=== PATIENT | female | born 1970 | race Caucasian/White ===

== ENCOUNTER 2017-11-22 09:55 | Outpatient (CLI) | payer OTHER ==
[2017-11-22 11:42] LABS: BASOPHILS % (AUTO) 0.9 % (0.0-2.0); EOSINOPHILS % (AUTO) 0.7 % (0.0-4.0); HEMATOCRIT 37.2 % (36-48); HEMOGLOBIN 12.4 g/dL (12.0-16.0); LYMPHOCYTES # (AUTO) 0.7 K/uL (1.0-5.5); LYMPHOCYTES % (AUTO) 16.1 % (20.5-51.5); MEAN CORPUSCULAR HEMOGLOBIN 29 pg (27-31); MEAN CORPUSCULAR HGB CONC 34 % (32-36); MEAN CORPUSCULAR VOLUME 87 fL (79.0-98.0); MONOCYTES # (AUTO) 0.3 K/uL (0.0-1.0); MONOCYTES % (AUTO) 7.5 % (1.7-9.3); NEUTROPHILS # (AUTO) 3.5 K/uL (1.8-7.7); NEUTROPHILS % (AUTO) 74.8 % (40.0-70.0); PLATELET COUNT (AUTO) 292 K/uL (130-430); RED BLOOD CELL COUNT(AUTO) 4.27 MIL/uL (4.2-6.2); RED CELL DISTRIBUTION WIDTH 12.9 % (9.0-15.0); WHITE BLOOD COUNT (AUTO) 4.5 K/uL (4.8-10.8)
[2017-11-22 11:51] LABS: BILIRUBIN,URINE NEGATIVE (NEGATIVE); BLOOD, URINE NEGATIVE (NEGATIVE); COLOR,URINE YELLOW (YELLOW); GLUCOSE,URINE NEGATIVE (NEGATIVE); KETONES,URINE NEGATIVE (NEGATIVE); LEUKOCYTE ESTERASE ,URINE TRACE (NEGATIVE); NITRITE, URINE POSITIVE (NEGATIVE); PH,URINE 6.5 (5.0-8.0); PROTEIN URINE NEGATIVE (NEGATIVE); UROBILINOGEN,URINE 0.2 (0.2-1.0)
[2017-11-22 11:52] LABS: CLARITY/URINE SLIGHTLY HAZY (CLEAR)
[2017-11-22 12:06] LABS: BACTERIA,URINE MANY /HPF (None Seen); RBC,URINE 0-3 /HPF (0-3)
[2017-11-22 12:28] LABS: ALANINE AMINOTRANSFERASE 17 U/L (12-78); ALBUMIN 3.5 g/dL (3.4-4.8); ANION GAP 7 (5-15); ASPARTATE AMINOTRANSFERASE 22 U/L (10-37); CALCIUM 8.9 mg/dL (8.4-11.0); CHLORIDE 101 mmol/L (98-107); CHOLESTEROL 143 mg/dL (<200); CREATININE 0.56 mg/dL (0.55-1.30); FREE T4 (FREE THYROXINE) 0.6 ng/dL (0.6-1.6); GFR AFRICAN AMERICAN 149 mL/min (>90); GLUCOSE 78 mg/dL (70-99); HDL CHOLESTEROL 39 mg/dL (>55); LDL CHOLESTEROL 100 mg/dL (<100); POTASSIUM 3.5 mmol/L (3.5-5.1); SODIUM SERUM 132 mmol/L (136-145); TOTAL BILIRUBIN 0.7 mg/dL (0.0-1.0); TRIGLYCERIDES 82 mg/dL (30-150); UREA NITROGEN, BLOOD 8 mg/dL (8-21)
[2017-11-22 12:35] LABS: ERYTHROCYTE SEDIMENTATION RATE 47 MM/HR (0-20)
[2017-11-22 12:36] LABS: C-REACTIVE PROTEIN QUANT < 0.2 mg/dL (0-0.5)
[2017-11-23 08:30] LABS: HEMOGLOBIN A1C 5.5 % (4.8-5.6)
[2017-11-23 10:10] LABS: THYROID PEROXIDASE (TPO) AB 15 IU/mL (0-34); TRIIODOTHYRONINE (T3) 136 ng/dL (71-180)
[2017-11-25 06:16] LABS: FOLATE (FOLIC ACID) >20.0 ng/mL (>3.0)
[2017-11-25 15:12] LABS: COMPLEMENT C3, SERUM 103 mg/dL (82-167); COMPLEMENT C4, SERUM 17 mg/dL (14-44)
[2017-11-25 16:07] LABS: ANTI NUCLEAR AB WITH REFLEX Positive (Negative)
[2017-11-28 14:24] LABS: COMPLEMENT C4, SERUM 17 mg/dL (14-44)
[2017-11-28 14:25] LABS: ANTI-DNA(DS) AB, QN 48 IU/mL (0-9); ANTI-NUCLEAR AB DIRECT Positive; ANTI-PARIETAL CELL AB 4.5 Units (0.0-20.0); ANTI-SMOOTH MUSCLE AB 20 Units (0-19); SMITH ABS 7.2
[2017-11-28 14:26] LABS: THYROID PEROXIDASE (TPO) AB 15 IU/mL (0-34)
== END 2017-11-22 20:55 | disposition home or self-care (01) ==
LOC: SLB 09:55
DX: Z00.01 Encounter for general adult medical examination with abnormal findings (principal); E03.9 Hypothyroidism, unspecified; M32.9 Systemic lupus erythematosus, unspecified
CPT/HCPCS: 36415; 80053; 80061; 81000-TC; 82306; 82607; 82746; 83036; 83735-TC; 84439; 84443-TC; 84480; 85025; 85651-TC; 86038; 86140; 86160; 86376

== ENCOUNTER 2020-01-01 10:46 | Outpatient (CLI) | payer OTHER ==
[2020-01-01 12:18] LABS: BILIRUBIN,URINE NEGATIVE (NEGATIVE); BLOOD, URINE NEGATIVE (NEGATIVE); CLARITY/URINE CLEAR (CLEAR); COLOR,URINE YELLOW (YELLOW); GLUCOSE,URINE NEGATIVE (NEGATIVE); KETONES,URINE NEGATIVE (NEGATIVE); LEUKOCYTE ESTERASE ,URINE NEGATIVE (NEGATIVE); NITRITE, URINE NEGATIVE (NEGATIVE); PROTEIN URINE NEGATIVE (NEGATIVE); UROBILINOGEN,URINE 0.2 (0.2-1.0)
[2020-01-01 12:29] LABS: BASOPHILS # (AUTO) 0.1 K/uL (0.0-0.2); BASOPHILS % (AUTO) 1.6 % (0.0-2.0); EOSINOPHILS % (AUTO) 0.3 % (0.0-4.0); HEMATOCRIT 33.8 % (36-48); HEMOGLOBIN 10.9 g/dL (12.0-16.0); LYMPHOCYTES # (AUTO) 0.3 K/uL (1.0-5.5); LYMPHOCYTES % (AUTO) 5.4 % (20.5-51.5); MEAN CORPUSCULAR HEMOGLOBIN 24 pg (27-31); MEAN CORPUSCULAR HGB CONC 32 % (32-36); MEAN CORPUSCULAR VOLUME 75 fL (79.0-98.0); MONOCYTES # (AUTO) 0.5 K/uL (0.0-1.0); MONOCYTES % (AUTO) 7.7 % (1.7-9.3); NEUTROPHILS # (AUTO) 5.4 K/uL (1.8-7.7); PLATELET COUNT (AUTO) 332 K/uL (130-430); RED BLOOD CELL COUNT(AUTO) 4.49 MIL/uL (4.2-6.2); RED CELL DISTRIBUTION WIDTH 20.4 % (9.0-15.0); WHITE BLOOD COUNT (AUTO) 6.3 K/uL (4.8-10.8)
[2020-01-01 13:06] LABS: TOTAL IRON BIND. CAPACITY 388 ug/dL (250-450)
[2020-01-01 13:17] LABS: ALANINE AMINOTRANSFERASE 26 U/L (12-78); ALBUMIN 3.5 g/dL (3.4-4.8); ANION GAP 5 (5-15); ASPARTATE AMINOTRANSFERASE 18 U/L (10-37); CALCIUM 8.7 mg/dL (8.4-11.0); CHLORIDE 105 mmol/L (98-107); CHOLESTEROL 183 mg/dL (<200); CREATININE 0.83 mg/dL (0.55-1.30); GLUCOSE 90 mg/dL (70-99); HDL CHOLESTEROL 55 mg/dL (>55); LDL CHOLESTEROL 107 mg/dL (<100); POTASSIUM 3.3 mmol/L (3.5-5.1); SODIUM SERUM 136 mmol/L (136-145); THYROID STIMULATING HORMONE 3.26 uIu/mL (0.34-4.82); TOTAL BILIRUBIN 0.4 mg/dL (0.0-1.0); TRIGLYCERIDES 138 mg/dL (30-150); UREA NITROGEN, BLOOD 9 mg/dL (8-21); URIC ACID 2.2 mg/dL (2.4-7.0)
[2020-01-01 13:18] LABS: GFR AFRICAN AMERICAN 94 mL/min (>90)
[2020-01-01 13:19] LABS: C-REACTIVE PROTEIN QUANT < 0.2 mg/dL (0-0.5)
[2020-01-01 13:49] LABS: ERYTHROCYTE SEDIMENTATION RATE 34 MM/HR (0-20)
[2020-01-03 15:30] LABS: HEMOGLOBIN A1C 5.9 % (4.8-5.6)
== END 2020-01-01 15:53 | disposition home or self-care (01) ==
LOC: SLB 10:46
DX: E55.9 Vitamin D deficiency, unspecified (principal); E03.9 Hypothyroidism, unspecified
CPT/HCPCS: 36415; 80053; 80061; 81003; 82306; 82550-TC; 82728; 83036; 83540-TC; 83550-TC; 83735-TC; 84443-TC; 84550-TC; 85025; 85651-TC; 86140